=== PATIENT | female | born 1960 | race African-American/Black ===

== ENCOUNTER 2016-09-07 11:27 | Inpatient (IN) | payer OTHER ==
--- NOTE | ~2016-09-07 | OR ---
Unit #: [id number] #: [id number] Patient: ROXANA GARZA [id number] [address] [address] [id number] MR#: [id number] NAME: ROXANA GARZA ROOM: 461 Date of Procedure: 09/07/2016 Admission Date: 09/07/2016 Surgeon: Edmond Woodson M.D. : 1960 Attending Physician: Edmond Woodson M.D. Referring Physician: Edmond Woodson M.D. OPERATIVE REPORT PREOPERATIVE DIAGNOSES 1. Right ankle pseudarthrosis. 2. Right calcaneocuboid joint pseudarthrosis. 3. Right talonavicular joint degenerative arthritis. 4. Retained right ankle hardware. POSTOPERATIVE DIAGNOSES 1. Right ankle pseudarthrosis. 2. Right calcaneocuboid joint pseudarthrosis. 3. Right talonavicular joint degenerative arthritis. 4. Retained right ankle hardware. PROCEDURES PERFORMED 1. Right ankle revision fusion (68900). 2. Right talonavicular joint fusion (30012). 3. Right revision calcaneocuboid fusion (67655). 4. Right ankle and foot hardware removal (76139). 5. Right distal fibular bone graft (02531). BUILD MANAGER Warner. ANESTHESIA General and popliteal saphenous block. INDICATIONS FOR SURGERY The patient is a 55-year-old female, who underwent attempted right pantalar fusion 2 years ago without success. She now has pseudoarthrosis of the ankle joint and calcaneocuboid joint. She has a partial fusion of the subtalar joint. She has severe talonavicular joint arthritis. She has pain with walking and standing. She is therefore to undergo revision fusions of her pseudarthroses and fusion of the talonavicular joint degenerative arthritis. She will also require removal of her previously placed intramedullary nail and foot staple. The patient has failed to respond to conservative care to include bracing, medication, rest, modification of activity, immobilization. She takes oral narcotics for pain relief. DESCRIPTION OF PROCEDURE The patient underwent right popliteal saphenous block. She was taken to the operating room and placed in supine position and general anesthetic Unit #: [id number] #: [id number] Patient: ROXANA GARZA was induced. The right leg was identified as the correct operative extremity during the time-out procedure. The IV antibiotic protocol was followed. The right leg was prepped and draped in usual sterile fashion. The leg was exsanguinated and the thigh tourniquet was inflated to 300 mmHg. A plantar longitudinal incision was made in the heel through her old scar. The subcutaneous tissue was divided. The end of the previously placed intramedullary nail was identified and the end cap was removed. The locking bolt was screwed into the nail. Under C-arm fluoroscopic control, the posterior blade plate was identified. A 3-cm incision was made in the posteroinferior heel and the blade plate was identified. The locking bolt was screwed into the blade plate and the blade was impacted out of the heel. Under C-arm fluoroscopic control, 2 small stab incisions were made in the mid shaft tibia at the location of the previously placed locking screws, which were placed from lateral to medial. The superficial peroneal nerve was identified and protected. The 2 screws were then removed and then the intramedullary nail was removed with a SLAP hammer. A lateral longitudinal incision was then made over the distal fibula crossing at the sinus tarsi to end of the base of the fourth metatarsal. Subcutaneous tissue was carefully divided. The fibula was exposed with subperiosteal dissection. An acetabular reamer was then used to ream the distal fibula to generate morselized autogenous bone graft. This was then saved for later in the case. The remainder of the distal fibular shaft was then removed by cutting it proximally with microsagittal saw. This was then morselized to be used for bone graft later in the case. The ankle joint was then exposed with subperiosteal dissection. It was distracted with a lamina commanding officer motorized squad. The power osteotome, curved curettes, and rongeurs were utilized to remove the articular cartilage from both sides of the ankle joint. The underlying subchondral bone was feathered with the power osteotome. The subtalar joint appeared to be fused and was not addressed. The calcaneocuboid joint was then exposed with subperiosteal dissection. The previously placed staple was easily removed as it was very proud and loose. The calcaneocuboid joint was distracted with a lamina commanding officer motorized squad. The power osteotome, curved curettes, and rongeurs were utilized to remove the articular cartilage from both sides of the calcaneocuboid joint. The underlying subchondral bone was feathered with the power osteotome. From the same lateral incision, the talonavicular joint could be seen and distracted with a lamina commanding officer motorized squad. The power osteotome was used to remove the articular cartilage from both sides of the talonavicular joint. The underlying subchondral bone was feathered with the power osteotome. A 3 mL of Augment platelet-derived growth factor was then placed into the ankle joint, talonavicular joint, calcaneocuboid joint. The fibular autogenous graft was then placed in each of the three joints. The Isai Valor intramedullary nail system was utilized. The guide pin was placed through the center of the hole in the calcaneus and into the tibial shaft. The one-step reamer was used. Flexible reamers were then used beginning at 9 mm diameter, increasing up to an 11 mm diameter in 0.5 mm diameter increments. A 30 cm long 10 mm diameter Valor nail was then impacted into place. The outrigger drill guide was then used to place 2 locking screws proximally medial to lateral through the Unit #: [id number] #: [id number] Patient: ROXANA GARZA distal tibial shaft through the nail to purchased the lateral tibial cortex. Excellent fixation was achieved. One screw was placed Dynamically, the other was placed statically. The outrigger drill guide was then positioned laterally and locking lateral screw was placed from lateral to medial. The compression device inside the nail was then used by turning the screwdriver until a squeak was heard. This then resulted in excellent compression across the ankle joint. A second calcaneal screw was placed from posterior to anterior using the outrigger drill guide and excellent fixation was achieved. The subtalar joint screw was not placed since the subtalar joint was already fused. The talonavicular joint was then positioned appropriately and fixated with a DePuy 6.5 mm diameter cannulated screw placed from distal to proximal. The calcaneocuboid joint was also fixated with a 6.5 mm diameter DePuy screw placement from distal to proximal and excellent fixation was achieved. Intraoperative C-arm fluoroscopy documented satisfactory hardware position and joint position. Care was taken to ensure that the heel was neutral and that the ankle was in neutral dorsiflexion. The forefoot was rectus at a 90-degree angle to the tibial shaft. Tourniquet was released with a total tourniquet time of 2 hours. Bleeding was controlled with electrocautery. Deep tissues were closed with 0 Vicryl. Subcutaneous tissue was closed with 3-0 Vicryl and the skin was closed with 3-0 nylon horizontal mattress sutures. Xeroform gauze dressing, sponges, Webril, and a posterior fiberglass splint were applied. The patient was then transported to the recovery room in stable condition. ESTIMATED BLOOD LOSS 100 mL. COMPLICATIONS None. SPECIMENS None. TOURNIQUET TIME 2 hours. Dictated byRukhsana Wall/renetta TD: 09/08/2016 00:09 JOB #: [id number] OPERATIVE REPORT X Dain Woodson MD X PROCEDURE OPERATIVE NOTE
--- NOTE | ~2016-09-07 | DS ---
Unit #: [id number] #: [id number] Patient: ROXANA GARZA [id number] [address] [place], [place] [address] [id number] MR#: [id number] NAME: ROXANA GARZA ROOM: 46 Age: 55 Sex: F Admission Date: 09/07/2016 : 1960 Discharge Date: 09/09/2016 Attending Physician: Edmond Woodson M.D. Referring Physician: Edmond Woodson M.D. Primary Care Physician: Tonya Primary Care Physician DISCHARGE SUMMARY CHIEF COMPLAINT Right foot and ankle pain. HISTORY OF PRESENT ILLNESS This patient is a 55-year-old, morbidly obese, female who has undergone previous attempted pantalar fusion with the development of pseudoarthroses at the ankle joint and calcaneocuboid joint. The patient also has significant arthritis of the talonavicular joint. The patient is, therefore, admitted for revision of this failed pantalar fusion. HOSPITAL COURSE The patient was taken to the operating room on the date of admission where she underwent removal of all hardware. She then underwent revision fusions of the ankle and calcaneocuboid joints and also underwent fusion of the talonavicular joint to complete a pantalar fusion. Distal fibular bone graft was utilized. There were no operative complications. She had a stable postoperative course. She was followed by the internal medicine service. Hematocrit was 35.7 on the second postoperative day. She was seen by physical therapy on a daily basis and instructed on how to remain nonweightbearing on her affected side. Dressing was changed on the first postoperative day. Wounds were healing well. She remained afebrile with stable vital signs. She was ready for discharge on the second postoperative day. FINAL DIAGNOSIS Right ankle calcaneocuboid and talonavicular joint pseudoarthroses with retained hardware. OPERATION PERFORMED Revision right pantalar fusion and hardware removal on 09/07/2016. DISPOSITION/RECOMMENDATIONS 1. The patient is discharged home. She will continue nonweightbearing for a total of 3 months. 2. Keep the dressing clean, dry and intact. Continue icing and elevation. 3. Discharge medications remain the same as her home medications with the addition of Xarelto 10 mg p.o. daily for 12 days and Percocet 10/325 mg 1 or 2 p.o. q.6 hours p.r.n. pain. She will not take hydrocodone in combination with the Percocet. 4. Follow up in my office in 10-14 days for dressing change, suture removal and application of a cast. Unit #: [id number] #: [id number] Patient: ROXANA GARZA Dictated by.Rukhsana Solis/brandon TD: 09/10/2016 09:39 JOB #: [id number] DISCHARGE SUMMARY X Dain Woodson MD X DISCHARGE SUMMARY
--- NOTE | ~2016-09-07 | CO ---
Unit #: [id number] #: [id number] Patient: ROXANA GARZA [id number] [address] [place], [place] [address] [id number] MR#: [id number] NAME: ROXANA GARZA ROOM: 461 Age: 55 Sex: F Admission Date: 09/07/2016 : 1960 Attending Physician: Edmond Woodson M.D. Requesting Physician: Edmond Woodson M.D. Consultation Date: 09/07/2016 CONSULTATION REPORT REASON FOR CONSULT Diabetic management. HISTORY OF PRESENT ILLNESS This 55-year-old female with AODM and hypertension was admitted to the orthopedic service today for right ankle surgery. The patient sustained a fracture some years ago requiring surgery but has continued to have pain due to pseudoarthrosis and partial joint nonunion. She therefore underwent right ankle hardware removal with revision of the plantar fusion and tibial bone graft. At this time, she is comfortable without complaints. She does have a history of AODM diagnosed this past year and normally takes metformin b.i.d. She may have sleep apnea, she is unsure. She plans a sleep study in the future. PAST MEDICAL HISTORY 1. Adult-onset diabetes mellitus with peripheral neuropathy diagnosed this past year. 2. Hypertension. 3. Morbid obesity. 4. Major depressive disorder. 5. Right ankle surgery. 6. section. ALLERGIES No known drug allergies. HOME MEDICATIONS 1. Metformin 500 mg p.o. b.i.d. 2. Neurontin 100 mg p.o. t.i.d. 3. Vistaril 25 mg t.i.d. 4. Zyrtec 10 mg daily. 5. Hydrochlorothiazide 25 mg daily. 6. [place] 10/325 b.i.d. 7. Ibuprofen 800 mg t.i.d. 8. Flonase nasal spray. However, it appears that patient has not taken some of these medicines for the past two weeks. HISTORY Colon cancer, breast cancer, hypertension, and AODM. SOCIAL HISTORY The patient lives with her male friend and daughter. She was smoking Unit #: [id number] #: [id number] Patient: ROXANA GARZA one-third pack per day of tobacco and drinks occasional alcohol. REVIEW OF SYSTEMS Difficult to obtain as the patient is mildly confused post surgery. PHYSICAL EXAMINATION GENERAL: A pleasant, mildly confused, morbidly obese, 55-year-old female currently in no acute distress. VITAL SIGNS: Blood pressure 153/83 and pulse 71. BMI is 45. HEENT: Eyes PERRLA. Extraocular muscles are intact. Pharynx is benign. NECK: Supple without adenopathy or thyromegaly. CHEST: Clear. CARDIAC: Normal S1 and S2 without S3, S4, or murmur. ABDOMEN: Bowel sounds are present. No hepatosplenomegaly, tenderness, or masses. EXTREMITIES: There is a splint noted right foot. Left foot without edema. Pedal pulse present. No ulcer on the foot. NEUROLOGIC: Patient is awake and alert. She is mildly confused postop. Her cranial nerves are intact. She has equal strength throughout. DIAGNOSTIC STUDIES LABORATORY PERFORMED EARLIER TODAY: Hematocrit 40, white blood count 10.1, and normal platelet count. SMA-7: Normal. ASSESSMENT 1. Postoperative diabetic management. Patient usually takes metformin. 2. Essential hypertension. 3. Morbid obesity. The patient plans a sleep study in the future. 4. Tobacco use. 5. Neuropathy. 6. Postoperative right ankle surgery as dictated above. Estimated blood loss was about 300 mL, and her perioperative vital signs have been stable. 7. History of depression. PLANS 1. Sliding scale insulin for now. Would hold Glucophage x2 days. 2. Decrease sedatives while on morphine DRUM STRAIGHTENER pump given possible obstructive sleep apnea. 3. Monitor chemistries for the next day or two. 4. DVT prophylaxis. Xarelto was started by Dr. Woodson. 5. Smoking cessation counseling. Thank you very much for this consult. Will follow with you. Dictated by... Tiffany Griffin M.D. TAD/fuentes TD: 09/07/2016 22:00 JOB #: [id number] Unit #: [id number] #: [id number] Patient: ROXANA GARZA CONSULTATION REPORT X Tiffany Griffin MD CONSULTATION REPORT
--- NOTE | ~2016-09-07 | BMI ---
[facility] Nutrition Therapy DATE: 09/08/16 Patient: ROXANA GARZA Physician: TALITA Address: [address] [place] [address] Room/Bed: [address] [place] [address], [facility], Zip: [place] [address] Admit Date: 09/07/16 Date of : [birth year] Height: 5 7 Weight: 291 132.2 HIGH BMI NOTE: DX: R ankle pseudoarthrosis, planning sx ANTHROPOMETRICS: 67", 291#, BMI 45.6 DIET: Carb Consistent diet RECOMMENDATIONS: Continue current diet. If diet education needed and appropriate prior to discharge please reconsult. Respectfully, KECIA QUIJANO RD, LD Food and Nutritional Services [facility] cc: client file
--- NOTE | ~2016-09-07 | HP ---
Unit #: [id number] #: [id number] Patient: ROXANA GARZA [id number] [address] [place], [place] [address] [id number] MR#: [id number] NAME: ROXANA GARZA ROOM: 461 Age: Sex: F Admission Date: 09/07/2016 : 1960 Attending Physician: Edmond Woodson M.D. Referring Physician: Edmond Woodson M.D. HISTORY AND PHYSICAL DATE OF ANTICIPATED ADMISSION/PROCEDURE September 07, 2016 CHIEF COMPLAINT Right ankle pain and deformity. HISTORY OF PRESENT ILLNESS The patient is a 55-year-old female who underwent right foot surgery two years ago. She underwent attempted fusion of the ankle joint, subtalar joint, and calcaneocuboid joint. This appears to have been a pantalar fusion. The patient has had ongoing pain despite this surgery. She has pain and swelling in the ankle, midfoot, and hindfoot. She has not had any drainage from the previous incisions, but she does complain of occasional erythema and warmth. She has failed physical therapy and pain management. She describes her pain as deep, burning, and occasionally sharp. She wears a lace-up ankle brace. Radiographs show tibial plafond and talar dome bone loss from a windshield wiper effect from the implant. There is a staple across the calcaneocuboid joint, and this is about 50% loose and protruding from the bone. The talonavicular joint is severely degenerated. The patient had a workup for infection and this demonstrated no apparent evidence of infection. CT scan performed in April 2016 showed an intramedullary nail with a bend in the nail which has placed her hindfoot into varus. The medial 60% of the subtalar joint is not fused. The ankle joint is wide open and shows no evidence of fusion. There is marked talonavicular joint arthritis and erosion. There is a staple crossing the calcaneocuboid joint without apparent healing of this joint. The patient is therefore admitted for removal of the Synthes nail and staple. She will then require revision right pantalar fusion using distal fibular bone graft using the OrthoHelix Valor nail and possible supplementation with Augment. This procedure was described with a diagram. The risks of bleeding, infection, nerve damage, need for further surgery in the future, prolonged recovery time, nonunion, malunion, deep venous thrombosis, pulmonary embolism, and anesthetics complications were discussed. She agrees to proceed. PAST MEDICAL HISTORY 1. Diabetes. 2. Peripheral neuropathy. 3. Hypertension. 4. Morbid obesity. 5. Tobacco abuse. Unit #: [id number] #: [id number] Patient: ROXANA GARZA PAST SURGICAL HISTORY 1. section. 2. Attempted pantalar fusion. 3. Heart valve replacement. HOME MEDICATIONS 1. Cymbalta. 2. Gabapentin. 3. Hydrochlorothiazide. 4. Potassium. 5. Lasix. 6. Metformin. 7. Naproxen. 8. Tessalon Perles. 9. Vistaril. 10. Zyrtec. FAMILY HISTORY Colon cancer, hypertension, and arthritis. SOCIAL HISTORY The patient is a social drinker and a 30 pack-year smoker. PHYSICAL EXAMINATION VITAL SIGNS: Height 5 feet 7, weight 280 pounds. GENERAL: This is a well-developed, well-nourished female in no acute distress. HEENT: Pharynx is clear. NECK: Supple without masses. HEART: Regular sinus rhythm without murmurs or gallops. LUNGS: Clear. ABDOMEN: Soft and nontender without masses. EXTREMITIES: Examination of the right foot shows 5 degrees of heel varus. She is tender on the medial and lateral aspects of the ankle joint. There is false motion of the hindfoot. Dorsalis pedis pulse is palpated. Sensation is decreased in a nondermatomal distribution. She has significant antalgia with weightbearing. DIAGNOSTIC STUDIES IMAGING: Standing x-rays of the right ankle show a calcaneocuboid pseudoarthrosis and an ankle pseudarthrosis. There is an intramedullary nail which appears to be a Synthes nail with a blade plate orientation with the blade placed from posterior to anterior into the calcaneus. There is dorsal subluxation of the navicular with fragmentation. ADMITTING DIAGNOSES 1. Right ankle pseudarthrosis. 2. Partial right subtalar joint nonunion. 3. Right calcaneocuboid joint pseudarthrosis. 4. Right talonavicular joint arthritis. 5. Indwelling right ankle hardware with malpositioning of the hindfoot. PLAN The patient has failed conservative care. She will therefore require removal of all hardware with revision fusion using distal fibular graft and possible supplementation with Augment platelet-derived growth factor. We will plan a revision pantalar fusion. This procedure was described Unit #: [id number] #: [id number] Patient: ROXANA GARZA with a diagram. The risks of bleeding, infection, nerve damage, need for further surgery in the future, prolonged recovery time, nonunion, malunion, deep venous thrombosis, pulmonary embolism, and anesthetic complications were discussed. She understands she will be nonweightbearing three months postoperative. Dictated by Rukhsana Farmer/fuentes TD: 09/06/2016 18:20 JOB #: [id number] HISTORY AND PHYSICAL X Dain Woodson MD X HISTORY AND PHYSICAL
--- NOTE | ~2016-09-07 | CR72 ---
[facility] A Service of [facility] & [facility] RADIOLOGY TEXT RESULTS PATIENT: ROXANA GARZA LOCATION: [facility] 461-01 : [birth year] UNIT #: [id number] AGE: [address]: Dain Woodson MD SEX: F ORDER DR: [id number] [facility] [address] [facility]. [place], [place] [address] [id number] MR#: [id number] Acc #: [id number] NAME: ROAXNA GARZA : 1960 SEX: F STUDY DATE/TIME: 09/09/2016 10:58 UNIT: [facility] ROOM: [facility] STUDY DESCRIPTION: CR Chest Single View Portable Attending Physician: Edmond Woodson M.D. Referring Physician: Edmond Woodson M.D. Ordering Physician: Danni Douglas A.P.R.N. Primary Care Physician: No Primary Care Physician MEDICAL IMAGING REPORT This report is preliminary unless electronic signature is present EXAM Chest, portable, 09/09/2016, 1058 hours. CLINICAL HISTORY Postop cough with shortness of air today. COMPARISON None FINDINGS Portable upright chest demonstrates heart size which is mildly prominent. There is a mildly tortuous aorta. Pulmonary vascularity is normal. The lungs are clear and there are no effusions. IMPRESSION There is mild cardiomegaly with a mildly tortuous aorta. The lungs are clear and there are no effusions. Dictated by... Elvira Landaverde M.D. THIS IS AN ELECTRONICALLY VERIFIED REPORT Elvira Landaverde M.D. at 09/09/2016 2:32 PM JUAN DANIEL/zuly TD: 09/09/2016 13:39 JOB #: [id number] MEDICAL IMAGING REPORT COPY
[~2016-09-07 11:27] MED LIST: BENZONATATE PO; CYMBALTA30 MG PO; KCL PO; LASIX PO; METFORMIN HCL500 M1 PO; NAPROXEN500 M1 PO; NEURONTIN100 MG PO; PREDNISONE PO; ZYRTEC10 M1 PO
[2016-09-07] MEDS ORDERED: HYDROCODON-ACE1 EAC5 PO (12:24)
[2016-09-07] MEDS ORDERED: IBUPROFEN800 MG PO (12:24)
[2016-09-07] MEDS ORDERED: FLONASE 0.05% N16 G1 (12:25)
[2016-09-07 12:48] LABS: HEMOGLOBIN 13.9 gm/dL (12.0-16.0); MEAN CELL VOLUME 76.7 FL (83-96); MEAN CORPUSCULAR HEMOGLOBIN 26.6 PG (28-34); MEAN CORPUSCULAR HGB CONC 34.7 g/dL (30-36); RED BLOOD COUNT 5.22 X10e (3.90-5.30); RED CELL DISTRIBUTION WIDTH 17.2 % (11.0-15.5); WHITE BLOOD COUNT 10.1 X10e3 (4.0-10.5)
[2016-09-07 13:31] LABS: BLOOD UREA NITROGEN 10 mg/dL (9-23); BUN/CREATININE RATIO 14.28; CARBON DIOXIDE 26 mmol/L (22-31); CHLORIDE 105 mmol/L (100-111); CREATININE SERUM 0.7 mg/dL (0.6-1.4); GLOM FILT RATE Estimated ABOVE60 mL/min (>60); GLUCOSE FASTING 104 mg/dL (70-110); SODIUM 138 mmol/L (135-145)
[2016-09-07] MEDS ORDERED: VISTARIL PO (14:12)
[2016-09-07] MEDS ORDERED: HYDROCHLOROTHIA25 MG PO (14:13)
[2016-09-08 03:40] LABS: HEMATOCRIT 36.7 % (35.0-45.0); HEMOGLOBIN 12.3 gm/dL (12.0-16.0)
[2016-09-08 04:01] LABS: BLOOD UREA NITROGEN 11 mg/dL (9-23); BUN/CREATININE RATIO 13.75; CALCIUM SERUM 8.4 mg/dL (8.4-10.2); CARBON DIOXIDE 25 mmol/L (22-31); CHLORIDE 104 mmol/L (100-111); CREATININE SERUM 0.8 mg/dL (0.6-1.4); GLOM FILT RATE Estimated ABOVE60 mL/min (>60); GLUCOSE FASTING 150 mg/dL (70-110); POTASSIUM 4.6 mmol/L (3.5-5.1); SODIUM 136 mmol/L (135-145)
[2016-09-08 16:03] LABS: CHOLESTEROL 109 mg/dL (0-200); HDL CHOLESTEROL 38 mg/dL (35-95); LDL CHOLESTEROL 55 mg/dL (-130); LDL/HDL RATIO 1 RATIO (0-4); TRIGLYCERIDES 79 mg/dL (10-160)
[2016-09-09 03:04] LABS: HEMATOCRIT 35.7 % (35.0-45.0); HEMOGLOBIN 12.2 gm/dL (12.0-16.0)
[2016-09-09 03:23] LABS: BLOOD UREA NITROGEN 8 mg/dL (9-23); CALCIUM SERUM 8.5 mg/dL (8.4-10.2); CARBON DIOXIDE 28 mmol/L (22-31); CHLORIDE 99 mmol/L (100-111); CHOLESTEROL 117 mg/dL (0-200); CREATININE SERUM 0.8 mg/dL (0.6-1.4); GLOM FILT RATE Estimated ABOVE60 mL/min (>60); GLUCOSE FASTING 140 mg/dL (70-110); HDL CHOLESTEROL 48 mg/dL (35-95); LDL CHOLESTEROL 57 mg/dL (-130); LDL/HDL RATIO 1 RATIO (0-4); MAGNESIUM 1.8 mg/dL (1.6-3.0); POTASSIUM 3.6 mmol/L (3.5-5.1); SODIUM 130 mmol/L (135-145); TRIGLYCERIDES 61 mg/dL (10-160)
[2016-09-09] MEDS ORDERED: XARELTO10 MG PO (12:14)
[2016-09-09] MEDS ORDERED: PERCOCET10 PO (12:16)
== END 2016-09-09 16:27 | disposition home or self-care (01) | DRG 493 ==
LOC: CSUR 11:27 → CPACUOF 17:00 → C4C 19:35
PROVIDERS: Internal Medicine; Orthopaedic Surgery
PROC: 0SGH0ZZ (ICD-10-PCS; 2016-09-07)
PROC: 0SGF04Z Fusion of Right Ankle Joint with Internal Fixation Device, Open Approach (ICD-10-PCS; 2016-09-07)
PROC: 0SPF04Z Removal of Internal Fixation Device from Right Ankle Joint, Open Approach (ICD-10-PCS; principal; 2016-09-07 13:00)
PROC: 0SGF07Z Fusion of Right Ankle Joint with Autologous Tissue Substitute, Open Approach (ICD-10-PCS; 2016-09-07 13:00)
PROC: 0QBJ0ZZ Excision of Right Fibula, Open Approach (ICD-10-PCS; 2016-09-07 13:00)
DX: M96.0 Pseudarthrosis after fusion or arthrodesis (principal); T84.89XA Other specified complication of internal orthopedic prosthetic devices, implants and grafts, initial encounter; E11.42 Type 2 diabetes mellitus with diabetic polyneuropathy; Z68.42 Body mass index [BMI] 45.0-49.9, adult; E87.1 Hypo-osmolality and hyponatremia; M13.871 Other specified arthritis, right ankle and foot; Z79.84 Long term (current) use of oral hypoglycemic drugs; I10 Essential (primary) hypertension; E66.01 Morbid (severe) obesity due to excess calories; F17.210 Nicotine dependence, cigarettes, uncomplicated; Z95.2 Presence of prosthetic heart valve; F32.9 Major depressive disorder, single episode, unspecified; F41.9 Anxiety disorder, unspecified
CPT/HCPCS: 71010; 80048; 80061; 82947; 83735; 83880; 85014; 85018; 85027; 85652; 86140; 94760; 97161; C1713; J0330; J0690; J1170; J1815; J1885; J2250; J2270; J2370; J2405; J2795; J3010

== ENCOUNTER → 2016-12-07 | Day surgery (SDC) | payer MEDICARE, OTHER ==
[~2016-12-07] MED LIST changes: +FLONASE 0.05% N16 G1; +HYDROCHLOROTHIA25 MG PO; +HYDROCODON-ACE1 EAC5 PO; +IBUPROFEN800 MG PO; +PERCOCET10 PO; +VISTARIL PO; +XARELTO10 MG PO
--- NOTE | ~2016-12-07 | EKG ---
PATIENT: ROXANA GARZA UNIT #: [id number] Ventricular Rate: 69 BPM Atrial Rate: 69 BPM P-R Interval: 164 ms QRS Duration: 88 ms Q-T Interval: 414 ms QTC Calculation(Bezet): 443 ms P Quinlan: 48 degrees Calculated R Quinlan: 8 degrees Calculated T Quinlan: 58 degrees Diagnosis Line: Normal sinus rhythm Diagnosis Line: Normal ECG Diagnosis Line: No previous ECGs available Diagnosis Line: Confirmed by AUBRIE GARRISON MD ([id number]) on Diagnosis Line: 12/08/2016 8:48:09 AM INTERPRETING MD: BLADIMIR JOSEPH
--- NOTE | ~2016-12-07 | HP ---
Unit #: [id number] #: [id number] Patient: ROXANA GARZA [id number] [address] [address] [id number] O MR#: [id number] NAME: ROXANA GARZA ROOM: Age: Sex: F Admission Date: 12/07/2016 : 1960 Attending Physician: Edmond Woodson M.D. Primary Care Physician: Generic Doctor Not In System HISTORY AND PHYSICAL CHIEF COMPLAINT Right ankle wound. HISTORY OF PRESENT ILLNESS Patient is a 56-year-old female with history of poorly-controlled diabetes who underwent revision right pantalar fusion on 09/07/2016. The patient is now three months postoperative and has a dehiscence of her lateral wound. She is therefore to undergo a right wound debridement with placement of a wound VAC. PAST MEDICAL HISTORY Remarkable for: 1. Adult-onset diabetes with diabetic peripheral neuropathy. 2. Hypertension. 3. Morbid obesity. 4. Depression. PAST SURGICAL HISTORY 1. Right pantalar fusion two years ago. 2. Revision right pantalar fusion three months ago. 3. . HOME MEDICATIONS 1. Metformin. 2. Neurontin. 3. Vistaril. 4. Zyrtec. 5. Hydrochlorothiazide. 6. [place]. 7. Flonase. ALLERGIES None. SOCIAL HISTORY The patient is a smoker. FAMILY HISTORY Colon cancer, hypertension, arthritis. PHYSICAL EXAMINATION HEIGHT: 5 feet 7 inches WEIGHT: 280 pounds. BMI: 43.8 GENERAL: This is a morbidly obese female in no acute distress. HEENT: Pharynx is clear. Unit #: [id number] #: [id number] Patient: ROXANA GARZA NECK: Supple without masses. HEART: Regular sinus rhythm without murmurs or gallops. LUNGS: Clear. ABDOMEN: Soft and nontender without masses or organomegaly. RIGHT ANKLE: Dehiscence of the lateral incision to a width of 5 cm and length of 6 cm. There is no exposed bone or joint. There was marked necrosis of the underlying skin and subcutaneous tissue was sharply debrided in our office two weeks ago. Sterile dressing is applied. ADMITTING DIAGNOSIS 1. Right lateral ankle wound dehiscence three months status post revision pantalar fusion. 2. History of tobacco abuse. 3. History of poorly-controlled diabetes. PLAN The patient is admitted for wound debridement and application of a wound VAC as well as IV antibiotics. This procedure was described along with the risks of bleeding, infection, nerve damage, need for further surgery in the future, prolonged recovery time, deep venous thrombosis, pulmonary embolism and anesthetic complications. She understands the above risks and agrees to proceed. Dictated by Rukhsana Farmer/thanh TD: 12/06/2016 20:38 JOB #: [id number] HISTORY AND PHYSICAL Page 1 of 1 X Dain Woodson MD X HISTORY AND PHYSICAL
--- NOTE | ~2016-12-07 | OR ---
Unit #: [id number] #: [id number] Patient: ROXANA GARZA [id number] [address] [place], [place] [address] [id number] O MR#: [id number] NAME: ROXANA GARZA ROOM: Date of Procedure: 12/07/2016 Admission Date: 12/07/2016 Surgeon: Edmond Woodson M.D. : 1960 Attending Physician: Edmond Woodson M.D. Primary Care Physician: Generic Doctor Not In System OPERATIVE REPORT PREOPERATIVE DIAGNOSIS Right lateral ankle wound dehiscence. POSTOPERATIVE DIAGNOSIS Right lateral ankle wound dehiscence. PROCEDURE PERFORMED Right lateral ankle wound incision and drainage with application of wound VAC to wound measuring 3 cm in width x 6 cm in length x 3 cm in depth (49123). ASSISTANTS Isaura. ANESTHESIA General. INDICATIONS FOR SURGERY The patient is a 56-year-old female with diabetes, who underwent revision, right pantalar fusion 3 months ago. She developed a lateral wound dehiscence and is now admitted for wound debridement and wound VAC application. DESCRIPTION OF PROCEDURE The patient was taken to the operating room and placed in supine position and general anesthetic was induced. The right ankle was identified as the correct operative location during the time-out procedure. She was placed in a right lateral decubitus position. The right leg was then prepped and draped in usual sterile fashion. A tourniquet was not utilized. Using a rongeur and scalpel, the wound was sharply debrided removing all fibrinous appearing material. Aerobic and anaerobic cultures were taken from deep inside the wound. An incisional wound VAC was then applied laterally and the wound was dressed with additional 4x4s cast padding with a posterior fiberglass splint and Jonathon wraps. The patient was then transported to the recovery room in stable condition. ESTIMATED BLOOD LOSS Minimal. COMPLICATIONS None. Unit #: [id number] #: [id number] Patient: ROXANA GARZA SPECIMENS Right ankle wound cultures. TOURNIQUET TIME Zero. PLAN The patient will be discharged home and will follow up in my office in 1 week. She will continue wound VAC changes every 3 days. We will then allow either the wound to granulate secondarily or proceed with split-thickness skin grafting at a later date. Dictated by.Rukhsana Solis/renetta TD: 12/08/2016 03:26 JOB #: [id number] OPERATIVE REPORT Page 1 of 1 X Dain Woodson MD X PROCEDURE OPERATIVE NOTE
[2016-12-07 14:07] LABS: HEMATOCRIT 41.2 % (35.0-45.0); MEAN CELL VOLUME 75.8 FL (83-96); MEAN CORPUSCULAR HEMOGLOBIN 25.8 PG (28-34); MEAN PLATELET VOLUME 8.3 FL (6.5-11.5); RED BLOOD COUNT 5.44 X10e (3.90-5.30); RED CELL DISTRIBUTION WIDTH 18.2 % (11.0-15.5)
[2016-12-07 14:24] LABS: ALBUMIN SERUM 4.1 g/dL (3.5-5.0); BILIRUBIN,TOTAL 0.7 mg/dL (0.2-2.0); CALCIUM SERUM 9.3 mg/dL (8.4-10.2); CREATININE SERUM 0.5 mg/dL (0.6-1.4); GLOM FILT RATE Estimated 127.2 mL/min (>60); POTASSIUM 4.5 mmol/L (3.5-5.1); PROTEIN TOTAL SERUM 7.5 g/dL (6.0-8.3)
== END | disposition home or self-care (01) ==
LOC: CSUR 11-30 15:30
PROVIDERS: Orthopaedic Surgery
DX: T81.30XA Disruption of wound, unspecified, initial encounter (principal); E11.42 Type 2 diabetes mellitus with diabetic polyneuropathy; I10 Essential (primary) hypertension; F32.9 Major depressive disorder, single episode, unspecified; E66.01 Morbid (severe) obesity due to excess calories; F17.210 Nicotine dependence, cigarettes, uncomplicated; Z68.41 Body mass index [BMI] 40.0-44.9, adult; Z79.84 Long term (current) use of oral hypoglycemic drugs; Z79.891 Long term (current) use of opiate analgesic; Z79.899 Other long term (current) drug therapy; Z98.1 Arthrodesis status; Z98.890 Other specified postprocedural states; Y83.1 Surgical operation with implant of artificial internal device as the cause of abnormal reaction of the patient, or of later complication, without mention of misadventure at the time of the procedure
CPT/HCPCS: 80053; 82947; 85027; 87070; 87075; 87205; 93005; J0690; J2250; J2270; J2405; J3010